=== PATIENT | male | born 1960 | race Caucasian/White ===

== ENCOUNTER 2023-03-19 11:27 | Emergency (ER) | payer OTHER ==
[~2023-03-19] VITALS: Ht 182.9 cm; Wt 83.9 kg
[2023-03-19] MEDS ORDERED: ATORVASTATIN CA80 MG PO (12:25)
[2023-03-19] MEDS ORDERED: ATACAND32 MG PO (12:25)
[2023-03-19] MEDS ORDERED: LIPOFEN150 MG (12:25)
[2023-03-19] MEDS ORDERED: SYNTHROID137 MCG PO (12:25)
[2023-03-19 14:44] LABS: HEMATOCRIT 46.1 % (39.0-48.0); HEMOGLOBIN 15.3 g/dL (13-16.00); MEAN CELL VOLUME 90.6 fL (80.0-100.00); MEAN CORPUSCULAR HGB CONC 33.1 g/dl (32.0-36.0); PLATELET COUNT 221 K/uL (150-450); RED BLOOD COUNT 5.09 M/uL (4.00-6.00); RED CELL DISTRIBUTION WIDTH 14.2 % (11.5-14.5)
[2023-03-19 14:48] LABS: URINE APPEARANCE Turbid; URINE BILIRRUBIN Small (NEGATIVE); URINE BLOOD Moderate; URINE COLOR Red; URINE GLUCOSE Negative (NEGATIVE); URINE LEUKOCYTE Moderate; URINE NITRATE Positive
[2023-03-19 14:49] LABS: URINE BACTERIA 88.1 uL (0.0-1933); URINE EPITHELIAL CELLS 7.2 uL (0.0-38.8); URINE WBC 121.1 uL (0.0-23.2)
[2023-03-19 15:25] LABS: ALBUMIN 4.6 gm/dL (3.4-5.0); BILIRUBIN TOTAL 0.84 mg/dL (0.3-1.2); BILIRUBIN,CONJUGATED 0.23 mg/dL (0.0-0.2); BILIRUBIN,UNCONJUGATED 0.61 mg/dL (0.0-0.6); CALCIUM 9.8 mg/dL (8.5-10.1); CREATININE SERUM 0.82 mg/dL (0.70-1.30); GFR 94.59; POTASSIUM 4.16 mEq/L (3.5-5.1); TOTAL PROTEIN 8.4 gm/dL (6.4-8.2)
[2023-03-19 15:51] LABS: URINE CRYSTALS FEW /HPF; URINE MUCUS NEGATIVE; URINE PROTEIN 100 (NEGATIVE); URINE RBC > 10558.9 uL (0.0-20.8)
[2023-03-19] MEDS ORDERED: AMOX1TAB5 PO (19:54)
== END 2023-03-19 21:13 | disposition home or self-care (01) ==
LOC: ER 11:27
PROVIDERS: General Practice
DX: R31.0 Gross hematuria (principal); I10 Essential (primary) hypertension